=== PATIENT | male | born 1975 | race Two or more races ===

== ENCOUNTER 2020-01-22 09:03 | Emergency (ER) | payer MEDICAID ==
[~2020-01-22] VITALS: Ht 177.8 cm; Wt 95.3 kg
[2020-01-22 09:10] VITALS: BP 128/89
== END 2020-01-22 10:13 | disposition home or self-care (01) ==
LOC: ER 09:03
DX: S53.402A Unspecified sprain of left elbow, initial encounter (principal); W01.198A Fall on same level from slipping, tripping and stumbling with subsequent striking against other object, initial encounter; Y93.E9 Activity, other interior property and clothing maintenance; Y92.89 Other specified places as the place of occurrence of the external cause; Y99.8 Other external cause status
CPT/HCPCS: 73080

== ENCOUNTER 2021-08-30 12:00 | Emergency (ER) | payer MEDICAID ==
[~2021-08-30] VITALS: Ht 180.3 cm; Wt 96.2 kg
[2021-08-30] MEDS ORDERED: SODIUM CHLORIDE 0.9% 500 ML IV ONE (12:30)
[2021-08-30 13:33] LABS: Basophils # (auto) 0.1 10 ^3/uL (0-0.2); Basophils % (auto) 0.5 % (0.0-2.0); Eosinophils # (auto) 0 10 ^3/uL (0-0.8); Eosinophils % (auto) 0.3 % (0.0-7.0); Hematocrit 45.7 % (41.0-53.0); Hemoglobin 15.7 g/dL (13.5-17.5); Lymphocytes # (auto) 1.4 10 ^3/uL (0.4-5.4); Lymphocytes % (auto) 10.1 % (10.0-50.0); Mean Corpuscular Hemoglobin 32.7 pg (28.0-32.0); Mean Corpuscular Hgb Conc. 34.3 g/dL (32.0-36.0); Mean Corpuscular Volume 95.4 fL (80.0-100.0); Monocytes # (auto) 1.1 10 ^3/uL (0-1.3); Monocytes % (auto) 7.7 % (0.0-12.0); Neutrophils # (auto) 11.1 10 ^3/uL (1.6-8.6); Neutrophils % (auto) 81.4 % (37.0-80.0); Nucleated Red Blood Cells % 0.2 %; Red Cell Distribution Width 13.1 % (11.8-14.3); White Blood Cell 13.6 10^3/uL (4.4-10.8)
[2021-08-30 13:37] LABS: Albumin 4.3 g/dL (3.4-5.0); Calcium 9.1 mg/dL (8.5-10.1)
[2021-08-30 13:41] LABS: BUN/Creatinine Ratio 11.5; Bilirubin, Total 0.5 mg/dL (0.2-1.0); Total Protein 7.7 g/dL (6.4-8.2)
[2021-08-30 17:32] VITALS: BP 132/72
== END 2021-08-30 17:33 | disposition home or self-care (01) ==
LOC: ER 12:00
DX: R55 Syncope and collapse (principal); G44.209 Tension-type headache, unspecified, not intractable; Z90.49 Acquired absence of other specified parts of digestive tract
CPT/HCPCS: 36415; 70450; 80053; 85025; 93005

== ENCOUNTER 2024-04-22 16:40 | Inpatient (IN) | payer MEDICAID ==
[~2024-04-22] VITALS: Ht 180.3 cm; Wt 102.3 kg
[2024-04-22 16:47] VITALS: BP 138/94; PULSE 69; RESP 16; O2SAT 100
[2024-04-22] MEDS ORDERED: ASPirin 325 MG TAB PO ONE (17:00)
[2024-04-22] MEDS ORDERED: HYDROcodone-ACET 5/325MG TAB PO ONE (17:00)
[2024-04-22 17:03] LABS: Basophils # (auto) 0.1 10 ^3/uL (0-0.2); Basophils % (auto) 0.6 % (0.0-2.0); Eosinophils # (auto) 0.1 10 ^3/uL (0-0.8); Eosinophils % (auto) 0.5 % (0.0-7.0); Hematocrit 46.9 % (41.0-53.0); Hemoglobin 15.9 g/dL (13.5-17.5); Lymphocytes # (auto) 2.3 10 ^3/uL (0.4-5.4); Lymphocytes % (auto) 17.6 % (10.0-50.0); Mean Corpuscular Hemoglobin 32.6 pg (28.0-32.0); Mean Corpuscular Hgb Conc. 33.8 g/dL (32.0-36.0); Mean Corpuscular Volume 96.3 fL (80.0-100.0); Monocytes % (auto) 7.8 % (0.0-12.0); Neutrophils # (auto) 9.6 10 ^3/uL (1.6-8.6); Neutrophils % (auto) 73.5 % (37.0-80.0); Platelet Count (auto) 358 10^3/uL (140-450); Red Blood Cells 4.87 10^6/uL (4.5-5.90); White Blood Cell 13.1 10^3/uL (4.4-10.8)
--- NOTE | 2024-04-22 17:09 | ED.PDOC ---
HPI Comments 48y M who presents to the ED for chief complaint of chest pain. Pt states he was at work and at approx 1030 AM, he started to feel sharp, substernal chest pains. Pt states he continued to have pains and came to the ED for further evaluation. Pt states the pain is non-radiating, constant, pressure like in nature with noted exacerbation of pain with movement and taking deep breaths and no relieving factors. Pt has associated shortness of breath but denies diaphoresis, palpitations, fever, cough, chills, dysuria, headache or dizziness. Pt states he has seen polisher numeral in the past but states after 1 appt, he has not seen polisher numeral since. Pt in the ED, has noted BP of 138/94 with all other vitals in normal range. Pt otherwise denies any other symptoms at this time. Chief Complaint: Chest Pain Time Seen by MD: 17:06 Primary Care Provider: UNKNOWN Reviewed Notes: Medications, Allergies Allergies: Coded Allergies: NO KNOWN ALLERGIES (Unverified , 01/22/20) Information Source: Patient, Spouse Mode of Arrival: Wheelchair Brought in by: spouse Past Medical History PAST MEDICAL HISTORY: High Lipids, HTN Past Medical History (Other): crohns disease, peripheral artery disease Surgical History: Cholecystectomy Family History Family History: Family hx of Cancer Social History Smoker: Non-Smoker Alcohol: Occasionally Drugs: Marijuana Lives In: Home Constitutional: denies: chills, diaphoresis, fatigue, fever, malaise, sweats, weakness, others EENTM: denies: blurred vision, double vision, ear bleeding, ear discharge, ear drainage, ear pain, ear ringing, eye pain, eye redness, hearing loss, mouth pain, mouth swelling, nasal discharge, nose bleeding, nose congestion, nose pain, photophobia, tearing, throat pain, throat swelling, voice changes, others Respiratory: reports: shortness of breath; denies: cough, hemoptysis, orthopnea, SOB at rest, SOB with excertion, stridor, wheezing, others Cardiovascular: reports: chest pain; denies: dizzy spells, diaphoresis, Dyspnea on exertion, edema, irregular heart beat, left arm pain, lightheadedness, palpitations, PND, syncope, others Gastrointestinal: denies: abdomen distended, abdominal pain, blood streaked bowels, constipated, diarrhea, dysphagia, difficulty swallowing, hematemesis, melena, nausea, poor appetite, poor fluid intake, rectal bleeding, rectal pain, vomiting, others Genitourinary: denies: burning, dysuria, flank pain, frequency, hematuria, incontinence, penile discharge, penile sore, pain, testicle pain, testicle swelling, urgency, others Neurological: denies: dizziness, fainting, headache, left sided numbness, left sided weakness, numbness, paresthesia, pre-existing deficit, right sided numbness, right sided weakness, seizure, speech problems, tingling, tremors, weakness, others Musculoskeletal: denies: back pain, gout, joint pain, joint swelling, muscle pain, muscle stiffness, neck pain, others Integumetry: denies: bruises, change in color, change in hair/nails, dryness, laceration, lesions, lumps, rash, wounds, others Allergic/Immunocompromised: denies: Difficulty Healing, Frequent Infections, Hives, Itching, others Hematologic/Lymphatic: denies: anemia, blood clots, easy bleeding, easy bruising, swollen glands, others Endocrine: denies: excessive hunger, excessive sweating, excessive thirst, excessive urination, flushing, intolerance to cold, intolerance to heat, unexplained weight gain, unexplained weight loss, others Psychiatric: denies: anxiety, bipolar disorder, depression, hopeless, panic disorder, schizophrenia, sleepless, suicidal, others All Other Systems: Reviewed and Negative Physical Exam General Appearance: Mild Distress, Obese HEENT: Other (Pupils symmetric, no facial asymmetry, moist mucous membranes) Neck: Full Range of Motion, Normal Inspection Respiratory: Lungs Clear, No Accessory Muscle Use, No Respiratory Distress, Normal Breath Sounds, Other (Pain increases with inspiration and cough) Cardiovascular: No Edema, No JVD, Regular Rate/Rhythm Breast Exam: Deferred Gastrointestinal: Non Tender, Soft Genitalia: Deferred Pelvic: Deferred Rectal: Deferred Extremities: Normal inspection, Normal range of motion, Non-tender, No pedal edema Neurologic: Alert, No Motor Deficits, Normal Affect, Normal Mood, No Sensory Deficits Cerebellar Function: NOT DONE Reflexes: NOT DONE Skin: Dry, Normal Color, Warm Lymphatic: NOT DONE EKG EKG : Comments Sinus rhythm, rate 67, normal intervals, normal axis, normal QRS, no ST/T [place] es. Was a procedure done? Was a procedure done?: No CP Differential Dx Differential Diagnosis: Angina, Anxiety / Panic Attack, Atrial Dysrhythmia, Electrolyte Disorder, Pulmonary Embolus, PVC's Differential Diagnosis: HTN Essential Differential Diagnosis: Angina, Chest Wall Pain, Costochondritis, Myocardial Infarction, Pericarditis X-Ray, Labs, Meds, VS Vital Signs Date Time Temp Pulse Resp B/P (MAP) Pulse Ox O2 Delivery O2 Flow Rate FiO2 04/22/24 16:47 98.5 69 16 138/94 (109) 100 04/22/24 16:46 67 Lab Test 04/22/24 16:50 Range/Units White Blood Count 13.1 H 4.4-10.8 10^3/uL Red Blood Count 4.87 4.5-5.90 10^6/uL Hemoglobin 15.9 13.5-17.5 g/dL Hematocrit 46.9 41.0-53.0 % Mean Corpuscular Volume 96.3 80.0-100.0 fL Mean Corpuscular Hemoglobin 32.6 H 28.0-32.0 pg Mean Corpuscular Hemoglobin Concent 33.8 32.0-36.0 g/dL Red Cell Distribution Width 13.0 11.8-14.3 % Platelet Count 358 140-450 10^3/uL Mean Platelet Volume 7.3 6.9-10.8 fL Neutrophils (%) (Auto) 73.5 37.0-80.0 % Lymphocytes (%) (Auto) 17.6 10.0-50.0 % Monocytes (%) (Auto) 7.8 0.0-12.0 % Eosinophils (%) (Auto) 0.5 0.0-7.0 % Basophils (%) (Auto) 0.6 0.0-2.0 % Neutrophils # (Auto) 9.6 H 1.6-8.6 10 ^3/uL Lymphocytes # (Auto) 2.3 0.4-5.4 10 ^3/uL Monocytes # (Auto) 1.0 0-1.3 10 ^3/uL Eosinophils # (Auto) 0.1 0-0.8 10 ^3/uL Basophils # (Auto) 0.1 0-0.2 10 ^3/uL Nucleated Red Blood Cells 0.0 % Prothrombin Time 10.9 9.3-11.8 sec Prothrombin Time INR 1.03 0.9-1.15 Activated Partial Thromboplast Time 28.8 24.5-34.5 SEC D-Dimer, Quantitative < 0.19 0.0-0.49 mg/L FEU Sodium Level 141 136-145 mmol/L Potassium Level 3.9 3.5-5.1 mmol/L Chloride Level 105 98-107 mmol/L Carbon Dioxide Level 23 20-31 mmol/L Anion Gap 13 5-15 Blood Urea Nitrogen 8 L 9-23 mg/dL Creatinine 0.82 0.700-1.30 mg/dL Glomerular Filtration Rate Calc 109 >90 mL/min BUN/Creatinine Ratio 9.8 L 10.0-20.0 Serum Glucose 91 74-106 mg/dL Calcium Level 10.1 8.7-10.4 mg/dL Total Bilirubin 0.4 0.2-1.0 mg/dL Aspartate Amino Transferase (AST) 15 13-40 U/L Alanine Aminotransferase (ALT) 23 7-40 U/L Alkaline Phosphatase 73 46-116 U/L Troponin I High Sensitivity < 3 L </=54 ng/L B-Type Natriuretic Peptide 25.45 0-100 pg/mL Total Protein 7.1 5.7-8.2 g/dL Albumin 5.0 H 3.2-4.8 g/dL [place] [id number] Ph: [phone] DIAGNOSTIC IMAGING Diagnostic Imaging Report : [id number] Signed PATIENT: MINO MARINACCT: [id number] UNIT: [id number] : 1975 LOC: ER ROOM / BED: / AGE / SEX: 48 / M ADM STATUS: REG ER SERVICE 1644 ORDERING PHYSICIAN: ELÍAS POWER MD PROCEDURE(s): CXRP - CHEST PORTABLE REASON: CHEST PAIN ORDER NUMBER(s): [id number], ACCESSION NUMBER(s): [id number] EXAM: XY CHEST PORTABLE TECHNIQUE: Single frontal chest radiograph CLINICAL HISTORY: CHEST PAIN COMPARISON: None Findings/Impression: Frontal chest radiograph demonstrates no acute osseous or superficial soft tissue abnormalities. The trachea is midline. The cardiac silhouette and mediastinum are within normal limits. No pneumothorax, pleural effusions, or consolidations. ATED BY: LAURE SHEN DO DICTATED DATE/TIME: 04/22/241725 SIGNED BY: LAURE SHEN DO SIGNED DATE/TIME: 04/22/241725 CC: X-Ray, Labs, Meds, VS Comment 48-year-old male with a history of hypertension, hyperlipidemia, Crohn's disease, peripheral artery disease complaining of chest pain Vitals remarkable for BP 138/94 Exam remarkable for mild distress, increased chest pain with inspiration and cough EKG sinus rhythm, no ST/T changes Chest x-ray unremarkable CBC, basic metabolic panel, BNP and 1st troponin unremarkable for any abnormality of acute significance Patient treated with the following in the ED: Aspirin 325 mg p.o., [place] 5/325 mg p.o. On re-evaluation, patient states pain has somewhat improved, but is still present. Vitals are stable. Patient states he was advised he needs evaluation by a polisher numeral, however never followed up. Plan is to admit the patient for serial troponins and Cardiology evaluation. Time of 1ST Reevaluation: 17:35 Reevaluation 1ST: Unchanged Time of 2ND Reevaluation: 19:50 Reevaluation 2ND: Improved Patient Education/Counseling: Diagnosis, Treatment Family Education/Counseling: Diagnosis, Treatment Departure 1 Departure Time of Disposition: 19:50 Impression: Primary Impression: Chest pain Qualified Codes: R07.9 - Chest pain, unspecified Disposition: 09 ADMITTED INPATIENT Admit to: [facility] Condition: Guarded Critical Care Note Critical Care Time?: No Stability Stability form required: No Heart Score Heart Score: Heart Score Response (Comments) Value History Moderate Suspicious 1 EKG Normal 0 Age 45-64 1 Risk Factors >3 or Hx ASHD 2 Troponin Normal limit 0 Total 4 I personally scribed for ASPEN CRAWFORD MD ([email or web address]) on 04/22/24 at 17:09. Electronically submitted by Gustavo Escalera ([email or web address]). I personally scribed for ASPEN CRAWFORD MD (MAURI) on 04/22/24 at 17:31. Electronically submitted by Gustavo Escalera ([facility] [email or web address]). ASPEN CRAWFORD MD Apr 22, 2024 17:09
[2024-04-22 17:19] LABS: INR 1.03 (0.9-1.15); Partial Thromboplastin Time 28.8 SEC (24.5-34.5); Prothrombin Time 10.9 sec (9.3-11.8)
--- NOTE | 2024-04-22 17:28 | DVH ---
EXAM: XY CHEST PORTABLE TECHNIQUE: Single frontal chest radiograph CLINICAL HISTORY: CHEST PAIN COMPARISON: None Findings/Impression: Frontal chest radiograph demonstrates no acute osseous or superficial soft tissue abnormalities. The trachea is midline. The cardiac silhouette and mediastinum are within normal limits. No pneumothorax, pleural effusions, or consolidations.
[2024-04-22 17:32] LABS: Alanine Aminotransferase 23 U/L (7-40); Alkaline Phosphatase 73 U/L (46-116); Anion Gap 13 (5-15); Aspartate Aminotransferase 15 U/L (13-40); BUN/Creatinine Ratio 9.8 (10.0-20.0); Blood Urea Nitrogen 8 mg/dL (9-23); Calcium 10.1 mg/dL (8.7-10.4); Carbon Dioxide 23 mmol/L (20-31); Chloride 105 mmol/L (98-107); Glucose 91 mg/dL (74-106); Potassium 3.9 mmol/L (3.5-5.1); Sodium 141 mmol/L (136-145)
[2024-04-22 17:33] LABS: Bilirubin, Total 0.4 mg/dL (0.2-1.0); Total Protein 7.1 g/dL (5.7-8.2)
[2024-04-22] MEDS ORDERED: NITROGLYCERIN 0.4 MG SL TAB SL PRN (20:45)
[2024-04-22] MEDS ORDERED: ONDANSETRON HCL 4 MG/2 ML VIAL IV PRN (20:45)
[2024-04-22] MEDS ORDERED: MORPHINE SULFATE INJ 2 MG/ml SYRG IV PRN (20:45)
[2024-04-22] MEDS ORDERED: TEMAZEPAM 15 MG CAP PO PRN (20:45)
[2024-04-22] MEDS ORDERED: ATORVASTATIN 20 MG TAB PO SCH (22:00)
--- NOTE | 2024-04-22 22:19 | DVHHP2 ---
History of Present Illness Reason for Visit: Chest pain History of Present Illness 48-year-old male presents for evaluation of chest pain. Patient reports a one day history of substernal nonradiating chest pain. Patient was at work when he developed substernal pressure-like nonradiating chest pain which was exacer bating with taking deep breaths. Reports mild shortness for breath. Denies palpitations, cough or fever. Denies dizziness. No other acute complaints reported. Past Medical History Hypertension, Crohn's disease, peripheral arterial disease and dyslipidemia Past Surgical History Cholecystectomy Family History Cancer Smoke: No ALCOHOL: occassional Drugs: Marijuana Lives: with Family Review of Systems Review of Systems Review of systems are currently negative otherwise addressed HPI. Allergies: Coded Allergies: NO KNOWN ALLERGIES (Unverified , 01/22/20) Medications Current Medications Medications Dose Ordered Sig/Tripp Route Start Time Stop Time Status Last Admin Dose Admin Aspirin 162 mg DAILY PO 04/23/24 10:00 Atorvastatin Calcium 10 mg HS PO 04/22/24 22:00 Temazepam 15 mg QHSP PRN PO 04/22/24 20:45 Ondansetron HCl 4 mg Q4HP PRN IV 04/22/24 20:45 Nitroglycerin 0.4 mg Q5MINP PRN SL 04/22/24 20:45 Morphine Sulfate 2 mg Q30M PRN IV 04/22/24 20:45 Exam Vital Signs Vital Signs Date Time Temp Pulse Resp B/P (MAP) Pulse Ox O2 Delivery O2 Flow Rate FiO2 04/22/24 16:47 98.5 69 16 138/94 (109) 100 Exam Gen: 48-year-old male in mild distress Skin: Warm, dry, normal color and texture, no rash. HEENT: Normocephalic atraumatic, mucous membranes moist and pink. Neck: Cervical and supraclavicular nodes normal without enlargement, trachea is midline, thyroid gland is normal without masses. Pulmonary: Clear to auscultation and percussion bilaterally. Cardiac: Regular rate and rhythm. No murmur Abdomen: Soft, nontender, nondistended, bowel sounds present all 4 quadrants, no guarding, no rigidity, no organomegaly. Extremities: No cyanosis, clubbing, no edema Neuro: Cranial nerves II through XII grossly intact, normal affect and speech, no focal motor deficits. Labs/Xrays ORDERING PHYSICIAN: ELÍAS POWER MD PROCEDURE(s): CXRP - CHEST PORTABLE REASON: CHEST PAIN ORDER NUMBER(s): [id number], ACCESSION NUMBER(s): [id number] EXAM: XY CHEST PORTABLE TECHNIQUE: Single frontal chest radiograph CLINICAL HISTORY: CHEST PAIN COMPARISON: None Findings/Impression: Frontal chest radiograph demonstrates no acute osseous or superficial soft tissue abnormalities. The trachea is midline. The cardiac silhouette and mediastinum are within normal limits. No pneumothorax, pleural effusions, or consolidations. Labs Test 04/22/24 16:50 Range/Units White Blood Count 13.1 H 4.4-10.8 10^3/uL Red Blood Count 4.87 4.5-5.90 10^6/uL Hemoglobin 15.9 13.5-17.5 g/dL Hematocrit 46.9 41.0-53.0 % Mean Corpuscular Volume 96.3 80.0-100.0 fL Mean Corpuscular Hemoglobin 32.6 H 28.0-32.0 pg Mean Corpuscular Hemoglobin Concent 33.8 32.0-36.0 g/dL Red Cell Distribution Width 13.0 11.8-14.3 % Platelet Count 358 140-450 10^3/uL Mean Platelet Volume 7.3 6.9-10.8 fL Neutrophils (%) (Auto) 73.5 37.0-80.0 % Lymphocytes (%) (Auto) 17.6 10.0-50.0 % Monocytes (%) (Auto) 7.8 0.0-12.0 % Eosinophils (%) (Auto) 0.5 0.0-7.0 % Basophils (%) (Auto) 0.6 0.0-2.0 % Neutrophils # (Auto) 9.6 H 1.6-8.6 10 ^3/uL Lymphocytes # (Auto) 2.3 0.4-5.4 10 ^3/uL Monocytes # (Auto) 1.0 0-1.3 10 ^3/uL Eosinophils # (Auto) 0.1 0-0.8 10 ^3/uL Basophils # (Auto) 0.1 0-0.2 10 ^3/uL Nucleated Red Blood Cells 0.0 % Prothrombin Time 10.9 9.3-11.8 sec Prothrombin Time INR 1.03 0.9-1.15 Activated Partial Thromboplast Time 28.8 24.5-34.5 SEC D-Dimer, Quantitative < 0.19 0.0-0.49 mg/L FEU Sodium Level 141 136-145 mmol/L Potassium Level 3.9 3.5-5.1 mmol/L Chloride Level 105 98-107 mmol/L Carbon Dioxide Level 23 20-31 mmol/L Anion Gap 13 5-15 Blood Urea Nitrogen 8 L 9-23 mg/dL Creatinine 0.82 0.700-1.30 mg/dL Glomerular Filtration Rate Calc 109 >90 mL/min BUN/Creatinine Ratio 9.8 L 10.0-20.0 Serum Glucose 91 74-106 mg/dL Calcium Level 10.1 8.7-10.4 mg/dL Total Bilirubin 0.4 0.2-1.0 mg/dL Aspartate Amino Transferase (AST) 15 13-40 U/L Alanine Aminotransferase (ALT) 23 7-40 U/L Alkaline Phosphatase 73 46-116 U/L Troponin I High Sensitivity < 3 L </=54 ng/L B-Type Natriuretic Peptide 25.45 0-100 pg/mL Total Protein 7.1 5.7-8.2 g/dL Albumin 5.0 H 3.2-4.8 g/dL Assessment/Plan Assessment/Plan Assessment Chest pain rule out ACS Hypertension Obesity Plan Admit the patient to telemetry to the hospitalist ACS protocol Resume home medications Echocardiogram pending Continue treatment per orders. Plan discussed with: Patient My Orders Orders - BLAYNE LARA AGACNP Procedure Category Date Status Time Aspirin Tablet PHA 04/23/24 In Process 10:00 Atorvastatin (Lipitor) PHA 04/22/24 In Process 22:00 * Cardiology Consult CONS 04/22/24 Transmitted 20:45 Basic Metabolic Panel LAB 04/23/24 Verified 04:00 Admit ADMIT 04/22/24 Transmitted 20:45 Temazepam (Restoril) PHA 04/22/24 In Process 20:45 Ondansetron Hcl PHA 04/22/24 In Process (Zofran) 20:45 Cardiac DIET 04/23/24 Transmitted Diet-2gna,Lofat,Lochol Breakfast Echo 2d Mode Cardiac US 04/22/24 Logged DOP 20:45 Condition: Fair FARHAN 04/22/24 In Process 20:45 Bedrest With Bathroom [facility] 04/22/24 In Process Privileg 20:45 Nitroglycerin PHA 04/22/24 In Process Sublingual (Ntrostat 20:45 Morphine Sulfate [facility] 04/22/24 In Process Injection 20:45 Stat Ekg For Chest [facility] 04/22/24 In Process Pain 20:45 Notify Md Of Changes [facility] 04/22/24 In Process From Base 20:45 Metallurgical Technician For [facility] 04/22/24 In Process 24 Hours 20:45 Emergency Dysrhythmia [facility] 04/22/24 In Process Protocol 20:45 Rhythm Strips Once [facility] 04/22/24 In Process Every Shift 20:45 Oxygen By Nasal RT 04/22/24 Transmitted Cannula 20:45 Date of Service: Apr 22, 2024 Billing Provider: BLAYNE LARA Common Visit Codes: [id number] INP/OBS CARE (HIGH) BLAYNE LARA Apr 22, 2024 22:19
[2024-04-23] MEDS ORDERED: ASPirin 81 mg TAB PO SCH (10:00)
--- NOTE | 2024-04-24 10:34 | ECG ---
[facility] Test Date: 2024-04-22 Test Time: 16:46:33 Pat Name: MINO MARIN Department: ER Room: [address] [place] [id number] Gender: M Airplane Electrical Repairer: MEI : 1975 Requested By: ELÍAS POWER Order Number: [id number] Reading MD: Mando Cortez Measurements Intervals [place] Rate: 67 P: 31 CT: 134 QRS: 17 QRSD: 100 T: 31 QT: 375 QTc: 396 Interpretive Statements Sinus rhythm ST elev, probable normal early repol pattern Electronically Signed On 04-24-2024 16:15:45 PST by Mando Cortez Please click the below link to view image of tracing.
== END 2024-04-23 00:15 | disposition left against medical advice (07) | DRG 198 ==
LOC: ER 16:40 → TELE 20:45
PROVIDERS: ADMIT Nurse Practitioner; ATTEND Nurse Practitioner
DX: I24.9 Acute ischemic heart disease, unspecified (principal); E66.9 Obesity, unspecified; I73.9 Peripheral vascular disease, unspecified; E78.5 Hyperlipidemia, unspecified; I10 Essential (primary) hypertension; Z90.49 Acquired absence of other specified parts of digestive tract; Z68.31 Body mass index [BMI] 31.0-31.9, adult
CPT/HCPCS: 36415; 71045; 80053; 83880; 84484; 85025; 85379; 85610; 85730; 93005; G0378

== ENCOUNTER → 2024-08-27 | Outpatient (CLI) | payer MEDICAID ==
--- NOTE | 2024-08-28 15:01 | DVHSR ---
APPROVED REPORT EXAM: Two-dimensional and M-mode echocardiogram with Doppler and color Doppler. DIMENSIONS LVDd5.5 (3.8-5.7cm)LA (2D)3.8 (1.9-4.0cm)Aortic Root3.8 (2.0-3.7cm) LVDs3.9 (2.5-4.0cm)LA (MM) (1.9-4.0cm)Aortic Cusp Exc2.6 (1.5-2.0cm) EF (%) 56.9 (55-70%)Rt. Atrium4.1 (1.9-4.0cm)Asc. Aorta cm IVSd1.2 (0.7-1.1cm)RV (D)3.8 (1.8-2.4cm) PWd0.9 (0.7-1.1cm) Mitral Valve MitralMitral Stenosis E wave0.50m/sMV Mean GR.mmHg A wave0.68m/sMV Peak GR.mmHg E/A ratio0.72D MVAcm2 DECEL [id number] 1/2 Timems Aortic Valve Aortic ValveAortic Stenosis V10.81m/Ilsa Mean GR.2mmHg V20.94m/Ilsa Peak GR.4mmHg Pulmonic Valve V20.66m/s Tricuspid Valve [id number] LEFT VENTRICLE The Ejection Fraction is >55%. ATRIA The left atrial size is normal. The right atrium is mildly dilated. MITRAL VALVE The mitral valve is normal in structure and function. There is no mitral valve regurgitation noted. PULMONIC VALVE The pulmonic valve is not well visualized. TRICUSPID VALVE The tricuspid valve is grossly normal. AORTIC VALVE The aortic valve opens well. No aortic regurgitation is present. GREAT VESSELS The aortic root is normal size. PERICARDIAL EFFUSION There is no pericardial effusion. Conclusion EF>55%
== END | disposition home or self-care (01) ==
LOC: Rad HDHVI 08:58
PROVIDERS: ATTEND Internal Medicine Cardiovascular Disease
DX: I51.7 Cardiomegaly (principal); R07.9 Chest pain, unspecified; R06.02 Shortness of breath
CPT/HCPCS: 93306

== ENCOUNTER → 2024-08-30 | Outpatient (CLI) | payer MEDICAID ==
[~2024-08-30] VITALS: Ht 180.3 cm; Wt 111.6 kg
--- NOTE | 2024-09-06 12:57 | DVHSR ---
APPROVED REPORT Exam: Nuclear Stress Test Indication: Chest pain Ht: 5 ft 11 in Wt: 246 lbs BSA: 2.30 m2 HR: 67 bpm BP: 105/82 mmHg BMI: 34.30 Rhythm: NSR Medical History Medical History: HTN, SOB, Dizziness Medications: Trazadone, Magnesium, Ambien Allergies: No known drug allergies Cardiac Risk Factors: FHX of CAD Stress Test Details Stress Test: Exercise stress testing was performed using a Dao protocol. HR Resting HR: 67 bpmMax Heart Rate (APMHR): 172.924397 bpm Max HR Achieved: 150 bpmTarget HR (85% APMHR): 146.219307 bpm % of APMHR: 87.21 Recovery HR: 88 bpm HR response to stress: Normal HR response to stress BP Resting BP: 105/82 mmHg Max BP: 193/83 mmHg Recovery BP: 123/81 mmHg BP response to stress: Exaggerated response ECG Resting ECG: Sinus Rhythm Stress ECG: Sinus Tachycardia Arrhythmia: None Recovery ECG: Sinus Rhythm Clinical Reason for Termination: Target HR achieved Stress Symptoms: Dyspnea Exercise duration: 8 min 23 sec Exercise capacity: 10.1 METs Resting chest pain resolved during exercise. Pt stated dyspnea during exercise that subsided during r ecovery. Stress ECG Conclusion NON ISCHEMIC CLINICAL RESPONSE NON ISCHEMIC ECG RESPONSE NO PERFUSION DEFECT NOTED DURING STRESS CARDIOLITE EF >55% LESS THAN 10% LIKELIHOOD FOR STRESS INDUCED ISCHEMIA NM EXAM: Myocardial Perfusion REST/STRESS Imaging Protocol: Rest Tc-99m/Stress Tc-99m 1 day Resting Data Rest SPECT myocardial perfusion imaging was performed in supine position 30 minutes following the int ravenous injection of 10.97 mCi of Tc-99m Sestamibi. Time of rest injection: 905 Date: 08/30/2024 Time of rest imagin Date: 08/30/2024 Administration Route: IV Administration Site: Left Hand Exercise Stress At peak stress, the patient was injected intravenously with 32.4 mCi of Tc-99m Sestamibi. Time of stress injection: 1025 Date: 08/30/2024 Time of stress imagin Date: 08/30/2024 Administration Route: IV Administration Site: Left Hand Heart Rate at time of stress injection: 146 bpm. Patient continued to exercise for 1 minute(s). Gated Stress SPECT was performed 15 minutes after stress injection. The images were gated to evaluate regional wall motion and calculate left ventricular ejection fracti on. Comments Cardiolite injection at 7 minutes, 19 seconds into test. Study Data Post stress, the left ventricular ejection was 57%.. Nuclear Conclusion NON ISCHEMIC CLINICAL RESPONSE NON ISCHEMIC ECG RESPONSE NO PERFUSION DEFECT NOTED DURING STRESS CARDIOLITE EF >55% LESS THAN 10% LIKELIHOOD FOR STRESS INDUCED ISCHEMIA
== END | disposition home or self-care (01) ==
LOC: Rad HDHVI 08:48
PROVIDERS: ATTEND Internal Medicine Cardiovascular Disease
DX: R00.0 Tachycardia, unspecified (principal); I10 Essential (primary) hypertension; R06.02 Shortness of breath; R07.89 Other chest pain; R06.00 Dyspnea, unspecified; R42 Dizziness and giddiness; Z82.49 Family history of ischemic heart disease and other diseases of the circulatory system; Z77.098 Contact with and (suspected) exposure to other hazardous, chiefly nonmedicinal, chemicals; Y99.0 Civilian activity done for income or pay
CPT/HCPCS: 78452; 93017; A9500; 96374